=== PATIENT | male | born 1955 | race Caucasian/White ===

== ENCOUNTER 2020-12-24 12:41 | Inpatient (IN) | payer MEDICARE, OTHER ==
[~2020-12-24] VITALS: Ht 182.9 cm; Wt 114.3 kg
[~2020-12-24 12:41] MED LIST: ASPIRIN EC81 MG PO; BACTRIM DS TAB1 EACH PO; CLINDAMYCIN HC300 MG PO; COLACE 100MG C100 MG PO; CYCLOBENZAPRINE10 MG PO; CYMBALTA30 MG PO; FLUOXETINE HCL10 MG PO; HUMALOG 10100 UNITS/ SC; HUMALOG100 UNIT/3 SC; HUMULIN 70100 UNIT/1 SQ; HYDROCODON-ACE1 EAC2 PO; HYDROXYZINE HCL25 MG PO; KEFLEX CAP 500500 MG PO; LACTINEX TABLET1 EA PO; LANTUS INS100 UTS/M1 SQ; LEVAQUIN500 MG PO; LEVEMIR FL100 UNIT/1 SC; LEVEMIR100 UNIT/1 SQ; LIPITOR10 MG PO; LORCET PLUS 7.1 EACH PO; MYCOSTATIN POWD15 GM TOP; NEURONTIN 400400 MG PO; NOVOLOG 10100 UNITS/ SQ; PROTONIX40 MG PO; TAMSULOSIN HCL0.4 MG PO; TRICOR 145 MG145 MG PO; VITAMIN B-121000 MC3 PO; VITAMIN D250 MCG PO; VOLTAREN100 GM TP
[2020-12-24 13:31] LABS: HEMOGLOBIN 14.1 gm/dl (14.0-17.5); RED BLOOD COUNT 4.7 M/UL (4.20-5.50)
[2020-12-24 13:57] LABS: BUN/CREATININE RATIO 18 (0-10)
[2020-12-24] MEDS ORDERED: REQUIP3 MG PO (15:26)
[2020-12-24] MEDS ORDERED: ARTHRITIS PAIN100 GM TP (16:39)
[2020-12-24] MEDS ORDERED: FINASTERIDE5 MG PO (16:40)
[2020-12-24] MEDS ORDERED: VISTARIL 50 MG50 MG PO (16:41)
[2020-12-24] MEDS ORDERED: HUMALOG100 UNIT/3 SC (16:41)
[2020-12-24] MEDS ORDERED: LEVEMIR FL100 UNIT/1 SC (16:42)
[2020-12-24] MEDS ORDERED: ONDANSETRON HCL4 MG PO (16:43)
[2020-12-24] MEDS ORDERED: HYDROCODON-ACE1 EAC2 PO (22:17)
[2020-12-24] MEDS ORDERED: TENORMIN 25 MG25 MG PO (22:51)
[2020-12-25 04:53] LABS: HEMOGLOBIN 12.8 gm/dl (14.0-17.5); RED BLOOD COUNT 4.44 M/UL (4.20-5.50); WHITE BLOOD COUNT 10.4 K/UL (4.5-11.0)
[2020-12-26 03:21] LABS: HEMOGLOBIN 13.6 gm/dl (14.0-17.5); RED BLOOD COUNT 4.63 M/UL (4.20-5.50); WHITE BLOOD COUNT 8.5 K/UL (4.5-11.0)
[2020-12-27 02:37] LABS: HEMOGLOBIN 12.3 gm/dl (14.0-17.5); RED BLOOD COUNT 4.24 M/UL (4.20-5.50); WHITE BLOOD COUNT 8.9 K/UL (4.5-11.0)
--- NOTE | 2020-12-27 09:28 | NUR ---
reported and showed to Dr. Acevedo patient's skin exoriation on his groin/penelope area and will order new medicine.
[2020-12-28 05:58] LABS: HEMOGLOBIN 11.9 gm/dl (14.0-17.5); RED BLOOD COUNT 4.08 M/UL (4.20-5.50); WHITE BLOOD COUNT 7.7 K/UL (4.5-11.0)
--- NOTE | 2020-12-28 16:57 | NUR ---
spoken with Dr. Acevedo and reported patient had 2x bowel movements and received order to d/c enema
[2020-12-29 03:15] LABS: HEMOGLOBIN 11.9 gm/dl (14.0-17.5); RED BLOOD COUNT 4.06 M/UL (4.20-5.50); WHITE BLOOD COUNT 6.9 K/UL (4.5-11.0)
[2020-12-30 05:11] LABS: HEMOGLOBIN 11.6 gm/dl (14.0-17.5); RED BLOOD COUNT 4.02 M/UL (4.20-5.50); WHITE BLOOD COUNT 7.7 K/UL (4.5-11.0)
[2021-01-04 05:49] LABS: HEMOGLOBIN 11.7 gm/dl (14.0-17.5); RED BLOOD COUNT 4.06 M/UL (4.20-5.50); WHITE BLOOD COUNT 7.7 K/UL (4.5-11.0)
--- NOTE | 2021-01-04 10:48 | NUR ---
reported to Dr. Thomas of patient complaints of pain on his penis, stated catheter bothering him. received order to notify urologists. spoken to Millicent and discussed the above and aware of the situation. stated will call Dr. Thomas herself
[2021-01-05 06:00] LABS: HEMOGLOBIN 11.9 gm/dl (14.0-17.5); RED BLOOD COUNT 4.13 M/UL (4.20-5.50); WHITE BLOOD COUNT 9.7 K/UL (4.5-11.0)
[2021-01-05] MEDS ORDERED: CEFEPIME HCL2 GM INJ (09:54)
[2021-01-05] MEDS ORDERED: HUMALOG 10100 UNITS/ SC (09:54)
[2021-01-05] MEDS ORDERED: CHRONULAC20 GM/30 M PO (09:54)
[2021-01-05] MEDS ORDERED: HUMALOG100 UNIT/3 SC (09:54)
[2021-01-05] MEDS ORDERED: LOTRIMIN CREAM15 GM TOP (09:54)
[2021-01-05] MEDS ORDERED: LEVEMIR FL100 UNIT/1 SC (09:54)
[2021-01-19] MEDS ORDERED: LEVEMIR100 UNIT/1 SC (11:49)
[2021-01-19] MEDS ORDERED: HUMALOG100 UNIT/3 SC (11:50)
[2021-01-19] MEDS ORDERED: CLEOCIN40 GM TP (11:51)
[2021-01-19] MEDS ORDERED: NYSTATIN1 EAC2 TP (11:52)
== END 2021-01-05 14:16 | disposition home health service (06) | DRG 698 ==
LOC: ER1 12:41 → M/S 15:04 → CDU 15:04 → M/S 19:41
PROVIDERS: Emergency Medicine; Internal Medicine; Physician Assistant Medical; ADMIT Internal Medicine
DX: T83.511A Infection and inflammatory reaction due to indwelling urethral catheter, initial encounter (principal); J96.01 Acute respiratory failure with hypoxia; R53.2 Functional quadriplegia; G93.41 Metabolic encephalopathy; J18.9 Pneumonia, unspecified organism; N17.9 Acute kidney failure, unspecified; J98.11 Atelectasis; E87.1 Hypo-osmolality and hyponatremia; N30.01 Acute cystitis with hematuria; N13.8 Other obstructive and reflux uropathy; Z20.822 Contact with and (suspected) exposure to COVID-19; B96.5 Pseudomonas (aeruginosa) (mallei) (pseudomallei) as the cause of diseases classified elsewhere; Y83.9 Surgical procedure, unspecified as the cause of abnormal reaction of the patient, or of later complication, without mention of misadventure at the time of the procedure; N13.9 Obstructive and reflux uropathy, unspecified; I12.9 Hypertensive chronic kidney disease with stage 1 through stage 4 chronic kidney disease, or unspecified chronic kidney disease; N18.30 Chronic kidney disease, stage 3 unspecified; E11.22 Type 2 diabetes mellitus with diabetic chronic kidney disease; B35.6 Tinea cruris; G47.33 Obstructive sleep apnea (adult) (pediatric); G89.29 Other chronic pain; E78.5 Hyperlipidemia, unspecified; E11.43 Type 2 diabetes mellitus with diabetic autonomic (poly)neuropathy; K31.84 Gastroparesis; M54.9 Dorsalgia, unspecified; F17.210 Nicotine dependence, cigarettes, uncomplicated; E86.0 Dehydration; E87.5 Hyperkalemia; B95.2 Enterococcus as the cause of diseases classified elsewhere; Z96.642 Presence of left artificial hip joint; N40.1 Benign prostatic hyperplasia with lower urinary tract symptoms; R33.8 Other retention of urine; Z88.1 Allergy status to other antibiotic agents; Z83.3 Family history of diabetes mellitus; Z79.4 Long term (current) use of insulin; Z88.0 Allergy status to penicillin; Z74.01 Bed confinement status; Z98.890 Other specified postprocedural states; Z82.49 Family history of ischemic heart disease and other diseases of the circulatory system; Z90.49 Acquired absence of other specified parts of digestive tract
CPT/HCPCS: 0240U; 36415; 51702; 71045; 74018; 80048; 80053; 80202; 81001; 82140; 82436; 82550; 82553; 82570; 82962; 83605; 83690; 83735; 83874; 84100; 84132; 84133; 84153; 84156; 84300; 84484; 85025; 85027; 86140; 87040; 87077; 87086; 87186; 93005; 96374; 96375; 97110; 97166; 99285; A6212; C9113; J0692; J0696; J1335; J1644; J1940; J2185; J2270; J2405; J3370; J7030; J7040; J7070; Q0177

== ENCOUNTER 2021-01-19 04:24 | Inpatient (IN) | payer MEDICARE, OTHER ==
[~2021-01-19] VITALS: Ht 185.4 cm; Wt 113.4 kg
[~2021-01-19 04:24] MED LIST changes: +ARTHRITIS PAIN100 GM TP; +CEFEPIME HCL2 GM INJ; +CHRONULAC20 GM/30 M PO; -CYCLOBENZAPRINE10 MG PO; -CYMBALTA30 MG PO; +FINASTERIDE5 MG PO; -LIPITOR10 MG PO; +LOTRIMIN CREAM15 GM TOP; -NEURONTIN 400400 MG PO; +ONDANSETRON HCL4 MG PO; +TENORMIN 25 MG25 MG PO; -TRICOR 145 MG145 MG PO; +VISTARIL 50 MG50 MG PO
[2021-01-19 05:06] LABS: HEMOGLOBIN 12.6 gm/dl (14.0-17.5); RED BLOOD COUNT 4.34 M/UL (4.20-5.50); WHITE BLOOD COUNT 8.4 K/UL (4.5-11.0)
[2021-01-19] MEDS ORDERED: MACROBID 100 M100 M1 PO (11:48)
[2021-01-19] MEDS ORDERED: CLEOCIN40 GM TOP (11:51)
[2021-01-19] MEDS ORDERED: NYSTATIN1 EAC2 TOP (11:52)
[2021-01-19] MEDS ORDERED: NYSTATIN15 GM TP (11:53)
[2021-01-20 03:09] LABS: HEMOGLOBIN 12.6 gm/dl (14.0-17.5); RED BLOOD COUNT 4.36 M/UL (4.20-5.50)
[2021-01-20 05:31] LABS: WHITE BLOOD COUNT 11.6 K/UL (4.5-11.0)
[2021-01-21 03:55] LABS: HEMOGLOBIN 11.8 gm/dl (14.0-17.5); RED BLOOD COUNT 4.09 M/UL (4.20-5.50); WHITE BLOOD COUNT 9.1 K/UL (4.5-11.0)
[2021-01-22 04:58] LABS: HEMOGLOBIN 10.6 gm/dl (14.0-17.5); RED BLOOD COUNT 3.73 M/UL (4.20-5.50); WHITE BLOOD COUNT 9.5 K/UL (4.5-11.0)
[2021-01-24 09:27] LABS: HEMOGLOBIN 9.2 gm/dl (14.0-17.5); WHITE BLOOD COUNT 7.4 K/UL (4.5-11.0)
[2021-01-24 09:32] LABS: RED BLOOD COUNT 3.22 M/UL (4.20-5.50)
[2021-01-25 09:58] LABS: RED BLOOD COUNT 3.15 M/UL (4.20-5.50)
[2021-01-26 02:38] LABS: HEMOGLOBIN 9.5 gm/dl (14.0-17.5); RED BLOOD COUNT 3.43 M/UL (4.20-5.50); WHITE BLOOD COUNT 5.6 K/UL (4.5-11.0)
--- NOTE | 2021-01-26 11:11 | NUR ---
SPOKE WITH PAVEL AT DR. HAGEN OFFICE. PER DR. PEDRO REMY [facility].
[2021-01-27 02:16] LABS: HEMOGLOBIN 9.6 gm/dl (14.0-17.5); RED BLOOD COUNT 3.4 M/UL (4.20-5.50); WHITE BLOOD COUNT 5.7 K/UL (4.5-11.0)
[2021-01-28 09:06] LABS: HEMOGLOBIN 9.6 gm/dl (14.0-17.5); RED BLOOD COUNT 3.38 M/UL (4.20-5.50); WHITE BLOOD COUNT 5.9 K/UL (4.5-11.0)
[2021-01-29 08:20] LABS: HEMOGLOBIN 9.7 gm/dl (14.0-17.5); RED BLOOD COUNT 3.41 M/UL (4.20-5.50); WHITE BLOOD COUNT 6.1 K/UL (4.5-11.0)
[2021-01-30 04:19] LABS: HEMOGLOBIN 9.4 gm/dl (14.0-17.5); RED BLOOD COUNT 3.37 M/UL (4.20-5.50); WHITE BLOOD COUNT 6.4 K/UL (4.5-11.0)
[2021-01-30] MEDS ORDERED: DIFLUCAN100 MG PO (17:45)
[2021-01-30] MEDS ORDERED: MAG-OX 400 TAB400 MG PO (17:45)
[2021-01-30] MEDS ORDERED: KEFLEX CAP 250250 MG PO (17:45)
--- NOTE | 2021-01-31 00:39 | NUR ---
REPORT FROM LORNE SMART RN AT 2320. PT STABLE. ALERT AND ORIENTED. AWATING EMS TO TRANSPORT HOME.
[2021-03-03] MEDS ORDERED: CUBICIN 500 MG500 MG IV (13:42)
[2021-03-03] MEDS ORDERED: ROCEPHIN IM/I2000 MG IV (13:43)
== END 2021-01-31 00:30 | disposition home health service (06) | DRG 698 ==
LOC: ER1 04:24 → CDU 08:12 → PROG CARE 08:12 → M/S 08:12 → PROG CARE 18:12 → M/S 01-26 18:20
PROVIDERS: Emergency Medicine; Internal Medicine; Physician Assistant Medical; ADMIT Internal Medicine
DX: T83.510A Infection and inflammatory reaction due to cystostomy catheter, initial encounter (principal); A41.9 Sepsis, unspecified organism; R65.21 Severe sepsis with septic shock; J18.9 Pneumonia, unspecified organism; R53.2 Functional quadriplegia; N17.0 Acute kidney failure with tubular necrosis; N13.30 Unspecified hydronephrosis; N30.01 Acute cystitis with hematuria; E87.2 Acidosis; E46 Unspecified protein-calorie malnutrition; Z20.822 Contact with and (suspected) exposure to COVID-19; L89.302 Pressure ulcer of unspecified buttock, stage 2; D64.9 Anemia, unspecified; G89.4 Chronic pain syndrome; R27.8 Other lack of coordination; R25.3 Fasciculation; E83.42 Hypomagnesemia; E87.5 Hyperkalemia; E11.65 Type 2 diabetes mellitus with hyperglycemia; E11.40 Type 2 diabetes mellitus with diabetic neuropathy, unspecified; N18.30 Chronic kidney disease, stage 3 unspecified; F17.210 Nicotine dependence, cigarettes, uncomplicated; E11.43 Type 2 diabetes mellitus with diabetic autonomic (poly)neuropathy; E78.5 Hyperlipidemia, unspecified; K31.84 Gastroparesis; B35.6 Tinea cruris; I48.0 Paroxysmal atrial fibrillation; G47.33 Obstructive sleep apnea (adult) (pediatric); Z96.649 Presence of unspecified artificial hip joint; I95.9 Hypotension, unspecified; E86.0 Dehydration; Z68.34 Body mass index [BMI] 34.0-34.9, adult; Z88.0 Allergy status to penicillin; Z82.49 Family history of ischemic heart disease and other diseases of the circulatory system; Z79.82 Long term (current) use of aspirin; Z79.4 Long term (current) use of insulin; Z79.899 Other long term (current) drug therapy; Z83.3 Family history of diabetes mellitus; Z74.01 Bed confinement status; Z90.49 Acquired absence of other specified parts of digestive tract
CPT/HCPCS: 36415; 36600; 70450; 71045; 71046; 80048; 80053; 80202; 81001; 82272; 82803; 82962; 83605; 83735; 83880; 84100; 85025; 87040; 87081; 87086; 93005; 94640; 94664; 94760; 96374; 96375; 96376; 99285; C9113; J0610; J0692; J0696; J1160; J1450; J1650; J1940; J2270; J2370; J2405; J3370; J3475; J7030; J7070; U0002

== ENCOUNTER 2021-02-01 10:07 | Emergency (ER) | payer MEDICARE, OTHER ==
[~2021-02-01 10:07] MED LIST changes: +CLEOCIN40 GM TOP; +DIFLUCAN100 MG PO; +KEFLEX CAP 250250 MG PO; +MACROBID 100 M100 M1 PO; +MAG-OX 400 TAB400 MG PO; +NYSTATIN1 EAC2 TOP; +NYSTATIN15 GM TP
[2021-02-01 11:04] LABS: WHITE BLOOD COUNT 7.2 K/UL (4.5-11.0)
[2021-02-01 11:08] LABS: HEMOGLOBIN 12.7 gm/dl (14.0-17.5); RED BLOOD COUNT 4.41 M/UL (4.20-5.50)
[2021-02-01 11:32] LABS: BUN/CREATININE RATIO 6 (0-10)
[2021-02-02 09:51] LABS: ACINETOBACTER BAUMANNII Not Detected (Negative); CANDIDA ALBICANS Not Detected (Negative); CANDIDA KRUSEI Not Detected (Negative); CANDIDA TROPICALIS Not Detected (Negative); ENTEROCOCCUS Not Detected (Negative); ESCHERICHIA COLI Not Detected (Negative); HAEMOPHILUS INFLUENZAE Not Detected (Negative); KLEBSIELLA OXYTOCA Not Detected (Negative); KLEBSIELLA PNEUMONIAE Not Detected (Negative); KPC-CARBAPENEM-RESISTANCE GENE Not Detected (Negative); PROTEUS Not Detected (Negative); PSEUDOMONAS AERUGINOSA Not Detected (Negative); SERRATIA MARCESANS Not Detected (Negative); STAPHYLOCOCCUS AUREUS Not Detected (Negative); STREP AGALACTIAE (GROUP B) Not Detected (Negative); STREP PYOGENES (GROUP A) Not Detected (Negative); STREPTOCOCCUS Not Detected (Negative); vanA/B (VANCOMYCIN RESIST GENE Not Detected (Negative)
[2021-02-02 11:08] LABS: STAPHYLOCOCCUS DETECTED (Negative); mecA (METHICILLIN RESIST GENE DETECTED (Negative)
[2021-03-03] MEDS ORDERED: CUBICIN 500 MG500 MG IV (13:42)
[2021-03-03] MEDS ORDERED: ROCEPHIN IM/I2000 MG IV (13:43)
== END 2021-02-02 00:30 | disposition short-term general hospital (02) ==
LOC: ER1 10:07
PROVIDERS: Emergency Medicine
DX: R10.9 Unspecified abdominal pain (principal); R11.2 Nausea with vomiting, unspecified; J18.9 Pneumonia, unspecified organism; F17.200 Nicotine dependence, unspecified, uncomplicated; Z20.822 Contact with and (suspected) exposure to COVID-19
CPT/HCPCS: 71045; 80053; 81001; 82550; 82553; 83605; 83690; 83880; 84484; 85025; 87040; 87077; 87150; 87186; 93005; 96374; 96375; 96376; 99285; J2405; J2550; U0002

== ENCOUNTER 2021-02-22 17:58 | Inpatient (IN) | payer MEDICARE, OTHER ==
[~2021-02-22] VITALS: Ht 182.9 cm; Wt 106.6 kg
[2021-02-22 20:04] LABS: HEMOGLOBIN 10.3 gm/dl (14.0-17.5); RED BLOOD COUNT 3.52 M/UL (4.20-5.50); WHITE BLOOD COUNT 6.3 K/UL (4.5-11.0)
[2021-02-23 04:09] LABS: HEMOGLOBIN 9.5 gm/dl (14.0-17.5); RED BLOOD COUNT 3.24 M/UL (4.20-5.50); WHITE BLOOD COUNT 6.2 K/UL (4.5-11.0)
[2021-02-23] MEDS ORDERED: LACTULOSE10 GM/15 M PO (08:54)
[2021-02-23] MEDS ORDERED: TYLENOL 8 HOUR650 MG PO (10:24)
[2021-02-23] MEDS ORDERED: ENDOCET 10-3251 EACH PO (10:27)
[2021-02-23] MEDS ORDERED: HUMALOG100 UNIT/3 SC (11:50)
[2021-02-23] MEDS ORDERED: CYMBALTA60 MG PO (15:22)
[2021-02-23] MEDS ORDERED: ROPINIROLE HCL3 MG PO (15:26)
[2021-02-23] MEDS ORDERED: NEURONTIN400 MG PO (22:52)
[2021-02-23 23:44] LABS: ACINETOBACTER BAUMANNII Not Detected (Negative); CANDIDA ALBICANS Not Detected (Negative); CANDIDA KRUSEI Not Detected (Negative); CANDIDA TROPICALIS Not Detected (Negative); ENTEROCOCCUS Not Detected (Negative); ESCHERICHIA COLI Not Detected (Negative); HAEMOPHILUS INFLUENZAE Not Detected (Negative); KLEBSIELLA OXYTOCA Not Detected (Negative); KLEBSIELLA PNEUMONIAE Not Detected (Negative); KPC-CARBAPENEM-RESISTANCE GENE Not Detected (Negative); PROTEUS Not Detected (Negative); PSEUDOMONAS AERUGINOSA Not Detected (Negative); SERRATIA MARCESANS Not Detected (Negative); STAPHYLOCOCCUS AUREUS Not Detected (Negative); STREP AGALACTIAE (GROUP B) Not Detected (Negative); STREP PYOGENES (GROUP A) Not Detected (Negative); STREPTOCOCCUS Not Detected (Negative); vanA/B (VANCOMYCIN RESIST GENE Not Detected (Negative)
[2021-02-23 23:45] LABS: mecA (METHICILLIN RESIST GENE DETECTED (Negative)
[2021-02-23 23:46] LABS: STAPHYLOCOCCUS DETECTED (Negative)
[2021-02-24 06:55] LABS: HEMOGLOBIN 10.2 gm/dl (14.0-17.5); RED BLOOD COUNT 3.55 M/UL (4.20-5.50)
[2021-02-24 07:12] LABS: WHITE BLOOD COUNT 4.5 K/UL (4.5-11.0)
[2021-02-26 09:23] LABS: HEMOGLOBIN 11.1 gm/dl (14.0-17.5); RED BLOOD COUNT 3.81 M/UL (4.20-5.50); WHITE BLOOD COUNT 6.5 K/UL (4.5-11.0)
[2021-02-27 05:23] LABS: HEMOGLOBIN 10.3 gm/dl (14.0-17.5); RED BLOOD COUNT 3.53 M/UL (4.20-5.50); WHITE BLOOD COUNT 6.4 K/UL (4.5-11.0)
[2021-02-28 05:22] LABS: HEMOGLOBIN 10.4 gm/dl (14.0-17.5); RED BLOOD COUNT 3.61 M/UL (4.20-5.50); WHITE BLOOD COUNT 7.7 K/UL (4.5-11.0)
--- NOTE | 2021-02-28 18:26 | NUR ---
MD MADE AWARE OF PT HIGH BG.
[2021-03-01 04:40] LABS: HEMOGLOBIN 10.9 gm/dl (14.0-17.5); RED BLOOD COUNT 3.79 M/UL (4.20-5.50); WHITE BLOOD COUNT 8.4 K/UL (4.5-11.0)
[2021-03-02 07:17] LABS: HEMOGLOBIN 10.9 gm/dl (14.0-17.5); RED BLOOD COUNT 3.74 M/UL (4.20-5.50); WHITE BLOOD COUNT 8.6 K/UL (4.5-11.0)
[2021-03-02] MEDS ORDERED: ROCEPHIN 1 GM AD1 GM IV (10:44)
[2021-03-02] MEDS ORDERED: ZYVOX600 MG PO (10:44)
[2021-03-02] MEDS ORDERED: IPRAT-ALBUT 0.5-3 ML INH (10:52)
[2021-03-02] MEDS ORDERED: DECADRON6 MG PO (10:52)
[2021-03-03] MEDS ORDERED: CUBICIN 500 MG500 MG IV (13:42)
[2021-03-03] MEDS ORDERED: ROCEPHIN IM/I2000 MG IV (13:43)
== END 2021-03-02 16:30 | disposition home health service (06) | DRG 177 ==
LOC: ER1 17:58 → MED SURG 4 22:08 → CDU 22:08 → MED SURG 4 02-23 17:41
PROVIDERS: Internal Medicine; Preventive Medicine Occupational Medicine; ADMIT Internal Medicine
PROC: 8E0ZXY6 Isolation (ICD-10-PCS; 2021-02-22)
PROC: 3E0333Z Introduction of Anti-inflammatory into Peripheral Vein, Percutaneous Approach (ICD-10-PCS; 2021-02-22)
PROC: XW033E5 Introduction of Remdesivir Anti-infective into Peripheral Vein, Percutaneous Approach, New Technology Group 5 (ICD-10-PCS; 2021-02-22)
PROC: XW13325 Transfusion of Convalescent Plasma (Nonautologous) into Peripheral Vein, Percutaneous Approach, New Technology Group 5 (ICD-10-PCS; principal; 2021-02-23)
PROC: B24BZZZ Ultrasonography of Heart with Aorta (ICD-10-PCS; 2021-03-01)
DX: U07.1 COVID-19 (principal); L89.153 Pressure ulcer of sacral region, stage 3; J12.82 Pneumonia due to coronavirus disease 2019; J96.01 Acute respiratory failure with hypoxia; G93.41 Metabolic encephalopathy; R53.2 Functional quadriplegia; T83.511A Infection and inflammatory reaction due to indwelling urethral catheter, initial encounter; N17.9 Acute kidney failure, unspecified; N13.6 Pyonephrosis; L89.312 Pressure ulcer of right buttock, stage 2; I12.9 Hypertensive chronic kidney disease with stage 1 through stage 4 chronic kidney disease, or unspecified chronic kidney disease; E87.5 Hyperkalemia; N18.30 Chronic kidney disease, stage 3 unspecified; I48.0 Paroxysmal atrial fibrillation; Y83.9 Surgical procedure, unspecified as the cause of abnormal reaction of the patient, or of later complication, without mention of misadventure at the time of the procedure; G89.4 Chronic pain syndrome; E11.22 Type 2 diabetes mellitus with diabetic chronic kidney disease; B96.20 Unspecified Escherichia coli [E. coli] as the cause of diseases classified elsewhere; R27.8 Other lack of coordination; E86.0 Dehydration; E11.43 Type 2 diabetes mellitus with diabetic autonomic (poly)neuropathy; K31.84 Gastroparesis; G47.33 Obstructive sleep apnea (adult) (pediatric); E78.5 Hyperlipidemia, unspecified; Z96.649 Presence of unspecified artificial hip joint; Z93.1 Gastrostomy status; Z88.0 Allergy status to penicillin; Z88.1 Allergy status to other antibiotic agents; Z79.01 Long term (current) use of anticoagulants; Z83.3 Family history of diabetes mellitus; Z90.49 Acquired absence of other specified parts of digestive tract; Z87.891 Personal history of nicotine dependence
CPT/HCPCS: ECHO; 36415; 36600; 71045; 80048; 80053; 80202; 81001; 82550; 82803; 82962; 83036; 85025; 85027; 86140; 86900; 86901; 86927; 87040; 87077; 87086; 87150; 87186; 93306; 96374; 99285; J0692; J0696; J0878; J1100; J1644; J1650; J3370; J7030; J7050; J7070; Q0177; U0002

== ENCOUNTER 2021-03-06 15:02 | Inpatient (IN) | payer MEDICARE, OTHER ==
[~2021-03-06] VITALS: Ht 182.9 cm; Wt 106.1 kg
[~2021-03-06 15:02] MED LIST changes: +CUBICIN 500 MG500 MG IV; +CYMBALTA60 MG PO; +DECADRON6 MG PO; +ENDOCET 10-3251 EACH PO; +IPRAT-ALBUT 0.5-3 ML INH; +LACTULOSE10 GM/15 M PO; +NEURONTIN400 MG PO; +ROCEPHIN 1 GM AD1 GM IV; +ROCEPHIN IM/I2000 MG IV; +ROPINIROLE HCL3 MG PO; +TYLENOL 8 HOUR650 MG PO; +ZYVOX600 MG PO
[2021-03-06 16:15] LABS: RED BLOOD COUNT 3.76 M/UL (4.20-5.50); WHITE BLOOD COUNT 7.8 K/UL (4.5-11.0)
[2021-03-06 16:45] LABS: BUN/CREATININE RATIO 21 (0-10)
[2021-03-07 04:18] LABS: HEMOGLOBIN 9.8 gm/dl (14.0-17.5); RED BLOOD COUNT 3.41 M/UL (4.20-5.50)
[2021-03-07 04:42] LABS: BUN/CREATININE RATIO 21 (0-10)
[2021-03-07] MEDS ORDERED: LEVEMIR100 UNIT/1 SC (11:49)
[2021-03-07] MEDS ORDERED: ZYVOX600 MG PO (13:38)
[2021-03-07] MEDS ORDERED: DULOXETINE HCL60 MG PO (13:45)
[2021-03-07] MEDS ORDERED: TRICOR 145 MG145 MG PO (13:51)
[2021-03-07] MEDS ORDERED: LIPITOR10 MG PO (14:00)
[2021-03-07] MEDS ORDERED: FLOMAX 0.4 MG0.4 MG PO (14:00)
[2021-03-07] MEDS ORDERED: FINASTERIDE5 MG PO (14:04)
[2021-03-07] MEDS ORDERED: MACROBID 100 M100 MG PO (14:05)
[2021-03-07] MEDS ORDERED: CYCLOBENZAPRINE10 MG PO (15:21)
[2021-03-08 02:02] LABS: ACINETOBACTER BAUMANNII Not Detected (Negative); CANDIDA ALBICANS Not Detected (Negative); CANDIDA KRUSEI Not Detected (Negative); CANDIDA TROPICALIS Not Detected (Negative); ENTEROCOCCUS Not Detected (Negative); ESCHERICHIA COLI Not Detected (Negative); HAEMOPHILUS INFLUENZAE Not Detected (Negative); KLEBSIELLA OXYTOCA Not Detected (Negative); KLEBSIELLA PNEUMONIAE Not Detected (Negative); KPC-CARBAPENEM-RESISTANCE GENE Not Detected (Negative); PROTEUS Not Detected (Negative); PSEUDOMONAS AERUGINOSA Not Detected (Negative); SERRATIA MARCESANS Not Detected (Negative); STAPHYLOCOCCUS AUREUS Not Detected (Negative); STREP AGALACTIAE (GROUP B) Not Detected (Negative); STREP PYOGENES (GROUP A) Not Detected (Negative); STREPTOCOCCUS Not Detected (Negative); vanA/B (VANCOMYCIN RESIST GENE Not Detected (Negative)
[2021-03-08 02:03] LABS: mecA (METHICILLIN RESIST GENE DETECTED (Negative)
[2021-03-08 02:05] LABS: STAPHYLOCOCCUS DETECTED (Negative)
[2021-03-09 04:55] LABS: HEMOGLOBIN 9.8 gm/dl (14.0-17.5); RED BLOOD COUNT 3.42 M/UL (4.20-5.50); WHITE BLOOD COUNT 6.4 K/UL (4.5-11.0)
[2021-03-10 08:41] LABS: HEMOGLOBIN 9.9 gm/dl (14.0-17.5); RED BLOOD COUNT 3.45 M/UL (4.20-5.50)
[2021-03-11 05:23] LABS: HEMOGLOBIN 9.2 gm/dl (14.0-17.5); RED BLOOD COUNT 3.25 M/UL (4.20-5.50); WHITE BLOOD COUNT 8.2 K/UL (4.5-11.0)
[2021-03-12 06:44] LABS: HEMOGLOBIN 9.4 gm/dl (14.0-17.5); RED BLOOD COUNT 3.3 M/UL (4.20-5.50)
[2021-03-12 06:45] LABS: WHITE BLOOD COUNT 5.7 K/UL (4.5-11.0)
[2021-03-13 06:32] LABS: HEMOGLOBIN 8.9 gm/dl (14.0-17.5); RED BLOOD COUNT 3.09 M/UL (4.20-5.50); WHITE BLOOD COUNT 4.7 K/UL (4.5-11.0)
[2021-03-14 03:06] LABS: HEMOGLOBIN 8.9 gm/dl (14.0-17.5); RED BLOOD COUNT 3.11 M/UL (4.20-5.50); WHITE BLOOD COUNT 4.7 K/UL (4.5-11.0)
[2021-03-16 08:31] LABS: HEMOGLOBIN 9.9 gm/dl (14.0-17.5)
[2021-03-16 08:32] LABS: WHITE BLOOD COUNT 8.2 K/UL (4.5-11.0)
[2021-03-16 08:33] LABS: RED BLOOD COUNT 3.59 M/UL (4.20-5.50)
[2021-03-17 07:37] LABS: HEMOGLOBIN 9.4 gm/dl (14.0-17.5); RED BLOOD COUNT 3.47 M/UL (4.20-5.50); WHITE BLOOD COUNT 8.8 K/UL (4.5-11.0)
[2021-03-18 10:06] LABS: HEMOGLOBIN 8.9 gm/dl (14.0-17.5); RED BLOOD COUNT 3.24 M/UL (4.20-5.50)
[2021-03-18 10:08] LABS: WHITE BLOOD COUNT 12.1 K/UL (4.5-11.0)
[2021-03-19 07:17] LABS: HEMOGLOBIN 8.3 gm/dl (14.0-17.5); WHITE BLOOD COUNT 12.3 K/UL (4.5-11.0)
[2021-03-19 12:26] LABS: ACINETOBACTER BAUMANNII Not Detected (Negative); CANDIDA ALBICANS Not Detected (Negative); CANDIDA KRUSEI Not Detected (Negative); CANDIDA TROPICALIS Not Detected (Negative); ESCHERICHIA COLI Not Detected (Negative); HAEMOPHILUS INFLUENZAE Not Detected (Negative); KLEBSIELLA OXYTOCA Not Detected (Negative); KLEBSIELLA PNEUMONIAE Not Detected (Negative); KPC-CARBAPENEM-RESISTANCE GENE Not Detected (Negative); PROTEUS Not Detected (Negative); PSEUDOMONAS AERUGINOSA Not Detected (Negative); SERRATIA MARCESANS Not Detected (Negative); STAPHYLOCOCCUS Not Detected (Negative); STAPHYLOCOCCUS AUREUS Not Detected (Negative); STREP AGALACTIAE (GROUP B) Not Detected (Negative); STREP PYOGENES (GROUP A) Not Detected (Negative); STREPTOCOCCUS Not Detected (Negative); mecA (METHICILLIN RESIST GENE Not Detected (Negative)
[2021-03-19 12:32] LABS: ENTEROCOCCUS DETECTED (Negative); vanA/B (VANCOMYCIN RESIST GENE DETECTED (Negative)
== END 2021-03-20 05:28 | disposition expired | DRG 698 ==
LOC: ER1 15:02 → M/S 17:54 → CDU 17:54 → M/S 03-08 14:11
PROVIDERS: Internal Medicine; Internal Medicine Nephrology; Physician Assistant; Student in an Organized Health Care Education/Training Program; ADMIT Internal Medicine
PROC: 0DH63UZ Insertion of Feeding Device into Stomach, Percutaneous Approach (ICD-10-PCS; 2021-03-15)
PROC: 02HV33Z Insertion of Infusion Device into Superior Vena Cava, Percutaneous Approach (ICD-10-PCS; principal; 2021-03-17)
PROC: B548ZZA Ultrasonography of Superior Vena Cava, Guidance (ICD-10-PCS; 2021-03-17)
DX: T83.511A Infection and inflammatory reaction due to indwelling urethral catheter, initial encounter (principal); G93.41 Metabolic encephalopathy; Z20.822 Contact with and (suspected) exposure to COVID-19; L89.153 Pressure ulcer of sacral region, stage 3; L89.213 Pressure ulcer of right hip, stage 3; J96.01 Acute respiratory failure with hypoxia; R65.20 Severe sepsis without septic shock; A41.9 Sepsis, unspecified organism; N17.9 Acute kidney failure, unspecified; G82.20 Paraplegia, unspecified; E87.2 Acidosis; E87.0 Hyperosmolality and hypernatremia; N39.0 Urinary tract infection, site not specified; I12.9 Hypertensive chronic kidney disease with stage 1 through stage 4 chronic kidney disease, or unspecified chronic kidney disease; N18.30 Chronic kidney disease, stage 3 unspecified; G47.33 Obstructive sleep apnea (adult) (pediatric); L89.152 Pressure ulcer of sacral region, stage 2; L89.212 Pressure ulcer of right hip, stage 2; L89.896 Pressure-induced deep tissue damage of other site; E78.5 Hyperlipidemia, unspecified; E11.22 Type 2 diabetes mellitus with diabetic chronic kidney disease; E83.42 Hypomagnesemia; G89.4 Chronic pain syndrome; L89.216 Pressure-induced deep tissue damage of right hip; E11.43 Type 2 diabetes mellitus with diabetic autonomic (poly)neuropathy; F17.210 Nicotine dependence, cigarettes, uncomplicated; K31.84 Gastroparesis; I48.0 Paroxysmal atrial fibrillation; Z86.16 Personal history of COVID-19; Z79.01 Long term (current) use of anticoagulants; Z79.4 Long term (current) use of insulin; Z93.1 Gastrostomy status; Z90.49 Acquired absence of other specified parts of digestive tract; Z88.0 Allergy status to penicillin; Z83.3 Family history of diabetes mellitus; Z87.440 Personal history of urinary (tract) infections
CPT/HCPCS: 31500; 36415; 36600; 70450; 71045; 74018; 80048; 80053; 80202; 81001; 82140; 82550; 82553; 82570; 82803; 82962; 83605; 83735; 83880; 84100; 84156; 84484; 85025; 85027; 85652; 86140; 87040; 87077; 87086; 87150; 87186; 87206; 92950; 94640; 94664; 94760; 96374; 96375; 99285; A6212; J0171; J0692; J0878; J1335; J1644; J2248; J2405; J3370; J3475; J7030; J7050; J7070; P9047; Q0177; U0002